=== PATIENT | male | born 1970 | race Caucasian/White ===

== ENCOUNTER 2020-06-23 08:52 | Outpatient (REF) | payer OTHER, SELFPAY | END 2020-06-23 08:53 | disposition home or self-care (01) | LOC: HO.LAB 08:52 | PROVIDERS: Visit Provider Internal Medicine | DX: Z20.828 Contact with and (suspected) exposure to other viral communicable diseases (principal) | CPT/HCPCS: C9803; U0003 ==

== ENCOUNTER 2020-07-20 12:39 | Outpatient (REF) | payer OTHER, SELFPAY ==
--- NOTE | 2020-07-20 12:45 | XR_ITS ---
EXAMINATION: XR CHEST CLINICAL INFORMATION: Cough COMPARISON: None TECHNIQUE: 2 views of the chest were obtained. FINDINGS: The lungs are clear. There is no airspace consolidation or groundglass opacity. The costophrenic sulci are well-defined. There is no effusion. The heart is normal in size. The hilar and mediastinal contours are normal. No visible acute bony abnormality. XR/XR chest 2V IMPRESSION: Unremarkable examination.
== END 2020-07-20 12:40 | disposition home or self-care (01) ==
LOC: HO.HMGCX 12:39
PROVIDERS: PCP Internal Medicine; Visit Provider Nurse Practitioner Family
DX: R05 Cough (principal)
CPT/HCPCS: 71046

== ENCOUNTER 2020-07-26 17:41 | Inpatient (IN) | payer OTHER, SELFPAY ==
--- NOTE | 2020-07-26 17:47 | CT_ITS ---
EXAMINATION: CT CHEST WITHOUT CONTRAST CLINICAL INFORMATION: Hypoxia. Covid positive. COMPARISON: Chest x-ray 07/20/2020 TECHNIQUE: Multidetector volumetric CT imaging of the chest was done. Axial MIP volume rendering provided. Sagittal and coronal reformatted images were obtained. This CT examination was performed using dose optimization techniques as appropriate, variously including the following: *Automated exposure control *Adjustment of mA and/or kV according to patient size (this includes techniques or standardized protocols for targeted exams where dose is matched to indication/reason for exam; i.e. extremities or head) *Use of iterative reconstruction technique DLP: 403 mGy-cm FINDINGS: LUNGS: There are extensive bilateral airspace multifocal airspace opacities in the lungs bilateral consistent with Covid positive pneumonia. These are new since the chest x-ray 07/20/2020. MEDIASTINUM: Without IV contrast mixed assessment of the hilum limited. There is borderline enlarged lymph nodes in the pretracheal retrovascular space that are likely reactive. PLEURA: There is no pleural effusion. No pleural mass or thickening. AXILLA: No lymphadenopathy. UPPER ABDOMEN: Diffuse low attenuation of liver parenchyma due to fatty change. The adrenal glands are normal. OSSEOUS STRUCTURES: No acute osseous abnormality. Mild degenerative spondylosis of the dorsal spine. CT/CT chest wo con IMPRESSION: Extensive bilateral airspace opacities consistent with positive pneumonia.
--- NOTE | 2020-07-26 17:48 | ECG_ITS ---
Test Reason : SHORTNESS OF BREATH Blood Pressure : / mmHG Vent. Rate : 088 BPM Atrial Rate : 088 BPM P-R Int : 166 ms QRS Dur : 086 ms QT Int : 358 ms P-R-T Axes : 031 002 -02 degrees QTc Int : 433 ms Normal sinus rhythm Nonspecific T wave abnormality Borderline ECG No previous ECGs available Referred By: Adrienne Morelos Electronically Signed By:CARMEN HINES
[2020-07-26 17:56] VITALS: BP 121/77; PULSE 94; RESP 28; TEMP 38.4; O2SAT 78; BMI 29.8
--- NOTE | 2020-07-26 17:56 | ED_ITS ---
HPI - SOB/Dyspnea General Chief Complaint: Dyspnea Stated Complaint: COVID Time Seen by Provider: 07/26/20 17:47 Source: patient Mode of arrival: ambulatory Limitations: no limitations History of Present Illness HPI Narrative: dx with COVID last has had dyspnea since then, given azithromycin and zpak but didn't take it due to PCP telling him to stop, his breathing has worsened over the past couple of days and he was hallucinating, sat at home checked 84%, told to come to ED MD elicited complaint: shortness of breath Pertinent past history: other (+COVID) Onset (ago): week(s) (1) Context: recent illness and occurred during exertion Timing: constant Severity: severe Exacerbating factors: exertion Relieving factors: oxygen Known history of: other (+ COVID) Associated symptoms: cough and other (hallucinating) Treatment prior to arrival: none Related Data Previous Rx's Medication Instructions Recorded albuterol sulfate 90 mcg/actuation 2 puff INHALATION Q4-6H PRN #6.7 g 07/20/20 aerosol inhaler prednisone 20 mg tablet 20 mg PO DAILY 9 Days #18 tab MDD 07/20/20 3 for 3days;2 for 3 days;1 3da Allergies Allergy/AdvReac Type Severity Reaction Status Date / Time Penicillins AdvReac Unknown Unknown Verified 07/26/20 17:49 Review of Systems Review of Systems: Constitutional : No Fever, pos Chills ENT/Mouth : No sore throat, No Rhinorrhea, No Swallowing Difficulty Eyes: No Eye Pain, No Swelling, No Redness Cardiovascular : No Chest Pain, positive SOB, No Orthopnea, no Edema Respiratory : pos Cough, No Sputum, No Wheezing, positive dyspnea Gastrointestinal : No Nausea, No Vomiting, No Diarrhea, No abdominal Pain, No Hematochezia, No Melena Genitourinary : No Dysuria, No Urinary Frequency, No Hematuria Musculoskeletal : No joint pain, No Myalgias Skin : No Skin Lesions, No rash Neuro : No Weakness, No Numbness, No Dizziness, No Headache Psych : No Anxiety/Panic, No Depression Heme/Lymph: No Bruising, No Lymphadenopathy Endocrine : No Polyuria, No Polydipsia All other systems reviewed and are negative [facility] Past Medical History Attestation statement: The following information was validated with the patient. Medical History Sleep apnea Social History Social History (Updated 07/26/20 @ 18:00 by Adrienne Morelos DO) Smoking Status: Never smoker Use of substances other than those prescribed or required for medical reasons: No Advance Directives: No Advance Directives Information Provided: Yes Physical Exam Vital Signs: Vital Signs: Last Vital Signs Temp 101.2 F H 07/26/20 17:56 Pulse 87 07/26/20 18:47 Resp 29 H 07/26/20 18:47 BP 122/77 07/26/20 18:47 Pulse Ox 96 07/26/20 18:47 Body Mass Index 29.8 Appearance: Alert. Oriented X3. Anxious, mild acute distress. Eyes: Pupils equal, round and reactive to light. ENT: Pharynx normal. Neck: Normal inspection. Neck supple. CVS: Normal heart rate and rhythm. Pulses normal. Respiratory: mild respiratory distress tachypnea and short sentences. Breath sounds with rhonchi and diminished throughout. Abdomen: Soft and non-tender. Skin: Skin warm and dry. Normal skin color. Normal skin turgor. Extremities: No lower extremity edema. No calf ttp Neuro: Oriented X 3. No motor deficit. No sensory deficit. Course Course Course Narrative: doing well on NRB at this time MDM - SOB/Dyspnea MDM Narrative Medical decision making narrative: 50 yo male with sleep apnea not a smoker dx with COVID almost a week ago his breathing has been getting worse and when he started hallucinating found to be hypoxic, on arrival to the ED he was 78% started on NRB and sat 96% with improvement in RR - will need labs, EKG, CT chest, IV dexamethasone, empiric ceftriaxone and azithromycin, planned admit Lab Data Result diagrams: 07/26/20 17:56 07/26/20 17:55 Labs: Lab Results 07/26/20 07/26/20 07/26/20 Range/Units 17:54 17:55 17:55 WBC (4.8-10.8) X10*3/uL RBC (4.60-5.80) X10*6/uL Hgb (14.0-18.0) g/dl Hct (42-52) % MCV (80-98) fL MCH (27.0-33.0) pg MCHC (31.0-36.0) g/dl RDW (11.0-16.0) % Plt Count (160-400) X10*3/uL MPV (9.4-12.4) fL Immature Gran % (Auto) (0.0-0.4) % Neut % (Auto) (45-73) % Lymph % (Auto) (20-40) % [place] % (Auto) (2-11) % Eos % (Auto) (0-4) % Baso % (Auto) (0-2) % Lymph # (Auto) (1.2-4.9) X10*3/uL [place] # (Auto) (0.1-1.2) X10*3/uL Eos # (Auto) (0.0-0.4) X10*3/uL Baso # (Auto) (0.0-0.2) X10*3/uL Abs Immat Gran (auto) (0.00-0.03) X10*3/uL Absolute Neuts (auto) (2.0-8.3) X10*3/uL Absolute Nucleated RBC (0.0-0.012) X10*3/uL Nucleated RBC % (auto) (0.0-0.2) /100WBC PT (10.8-13.0) SEC INR (0.9-1.1) APTT (24.1-38.0) SEC VBG pH (7.32-7.43) VBG pCO2 mmhg VBG pO2 mmhg VBG HCO3 mmol/L VBG O2 Saturation % VBG Base Excess mmol/L Sodium 136 (135-145) mmol/L Potassium 4.3 (3.3-5.1) mmol/l Chloride 95 L (96-108) mmol/L Carbon Dioxide 28 (22-29) mmol/L Anion Gap 17 (12-20) BUN 17 H (9-16) mg/dL Creatinine 1.14 (0.5-1.4) mg/dL Estim Creat Clear Calc 95.8 Estimated GFR > 60 Random Glucose 121 H (60-115) mg/dL Lactic Acid 1.6 (0.5-2.0) mmol/L Calcium 9.1 (8.4-10.2) mg/dL Magnesium (1.6-2.6) mg/dL Total Bilirubin (0.0-1.0) mg/dL Direct Bilirubin (0.0-0.5) mg/dL AST (5-37) U/L ALT (0-40) U/L Alkaline Phosphatase (39-117) U/L Lactate Dehydrogenase (118-273) U/L Total Creatine Kinase 311 H (38-174) U/L B-Natriuretic Peptide Cancelled Total Protein (6.5-8.0) g/dL Albumin (3.5-5.0) g/dL 07/26/20 07/26/20 07/26/20 Range/Units 17:55 17:55 17:56 WBC 7.8 (4.8-10.8) X10*3/uL RBC 5.89 H (4.60-5.80) X10*6/uL Hgb 17.7 (14.0-18.0) g/dl Hct 52.2 H (42-52) % MCV 88.6 (80-98) fL MCH 30.1 (27.0-33.0) pg MCHC 33.9 (31.0-36.0) g/dl RDW 11.3 (11.0-16.0) % Plt Count 291 (160-400) X10*3/uL MPV 8.5 L (9.4-12.4) fL Immature Gran % (Auto) 0.6 H (0.0-0.4) % Neut % (Auto) 81.9 H (45-73) % Lymph % (Auto) 13.3 L (20-40) % [place] % (Auto) 3.8 (2-11) % Eos % (Auto) 0.1 (0-4) % Baso % (Auto) 0.3 (0-2) % Lymph # (Auto) 1.0 L (1.2-4.9) X10*3/uL [place] # (Auto) 0.3 (0.1-1.2) X10*3/uL Eos # (Auto) 0.0 (0.0-0.4) X10*3/uL Baso # (Auto) 0.0 (0.0-0.2) X10*3/uL Abs Immat Gran (auto) 0.05 H (0.00-0.03) X10*3/uL Absolute Neuts (auto) 6.4 (2.0-8.3) X10*3/uL Absolute Nucleated RBC 0.000 (0.0-0.012) X10*3/uL Nucleated RBC % (auto) 0.0 (0.0-0.2) /100WBC PT 13.8 H (10.8-13.0) SEC INR 1.2 H (0.9-1.1) APTT 28.5 (24.1-38.0) SEC VBG pH (7.32-7.43) VBG pCO2 mmhg VBG pO2 mmhg VBG HCO3 mmol/L VBG O2 Saturation % VBG Base Excess mmol/L Sodium (135-145) mmol/L Potassium (3.3-5.1) mmol/l Chloride (96-108) mmol/L Carbon Dioxide (22-29) mmol/L Anion Gap (12-20) BUN (9-16) mg/dL Creatinine (0.5-1.4) mg/dL Estim Creat Clear Calc Estimated GFR Random Glucose (60-115) mg/dL Lactic Acid (0.5-2.0) mmol/L Calcium (8.4-10.2) mg/dL Magnesium 2.4 (1.6-2.6) mg/dL Total Bilirubin 1.3 H (0.0-1.0) mg/dL Direct Bilirubin 0.5 (0.0-0.5) mg/dL AST 47 H (5-37) U/L ALT 45 H (0-40) U/L Alkaline Phosphatase 54 (39-117) U/L Lactate Dehydrogenase 465 H (118-273) U/L Total Creatine Kinase (38-174) U/L B-Natriuretic Peptide Total Protein 8.1 H (6.5-8.0) g/dL Albumin 4.5 (3.5-5.0) g/dL 30/20 Range/Units 18:11 WBC (4.8-10.8) X10*3/uL RBC (4.60-5.80) X10*6/uL Hgb (14.0-18.0) g/dl Hct (42-52) % MCV (80-98) fL MCH (27.0-33.0) pg MCHC (31.0-36.0) g/dl RDW (11.0-16.0) % Plt Count (160-400) X10*3/uL MPV (9.4-12.4) fL Immature Gran % (Auto) (0.0-0.4) % Neut % (Auto) (45-73) % Lymph % (Auto) (20-40) % [place] % (Auto) (2-11) % Eos % (Auto) (0-4) % Baso % (Auto) (0-2) % Lymph # (Auto) (1.2-4.9) X10*3/uL [place] # (Auto) (0.1-1.2) X10*3/uL Eos # (Auto) (0.0-0.4) X10*3/uL Baso # (Auto) (0.0-0.2) X10*3/uL Abs Immat Gran (auto) (0.00-0.03) X10*3/uL Absolute Neuts (auto) (2.0-8.3) X10*3/uL Absolute Nucleated RBC (0.0-0.012) X10*3/uL Nucleated RBC % (auto) (0.0-0.2) /100WBC PT (10.8-13.0) SEC INR (0.9-1.1) APTT (24.1-38.0) SEC VBG pH 7.48 H (7.32-7.43) VBG pCO2 31 mmhg VBG pO2 147 mmhg VBG HCO3 22 mmol/L VBG O2 Saturation 99.0 % VBG Base Excess 0.1 mmol/L Sodium (135-145) mmol/L Potassium (3.3-5.1) mmol/l Chloride (96-108) mmol/L Carbon Dioxide (22-29) mmol/L Anion Gap (12-20) BUN (9-16) mg/dL Creatinine (0.5-1.4) mg/dL Estim Creat Clear Calc Estimated GFR Random Glucose (60-115) mg/dL Lactic Acid (0.5-2.0) mmol/L Calcium (8.4-10.2) mg/dL Magnesium (1.6-2.6) mg/dL Total Bilirubin (0.0-1.0) mg/dL Direct Bilirubin (0.0-0.5) mg/dL AST (5-37) U/L ALT (0-40) U/L Alkaline Phosphatase (39-117) U/L Lactate Dehydrogenase (118-273) U/L Total Creatine Kinase (38-174) U/L B-Natriuretic Peptide Total Protein (6.5-8.0) g/dL Albumin (3.5-5.0) g/dL ECG Data Attestation: I personally reviewed and interpreted this ECG as follows: ECG interpretation date: 07/26/20 ECG interpretation time: 18:44 Interpretation: Rate: 88 Rhythm: NSR [place]: normal Normal P waves. Normal AMANUEL. Normal QRS complex. ST T wave : tall waves V2, no ALANIS, nonspecific inverted V6 qTC: normal prior studies: no acute ischemia, none available The study has been interpreted contemporaneously by me. . Critical Care Time Critical Care Time Critical Care Time: Yes Total Critical Care Time: 60 Attestation: NRB, oxygen, repeat assessments. I attest to this time spent taking care of the patient Discharge Plan Discharge Clinical Impression: COVID-19, Pneumonia due to 2019-nCoV, Hypoxia Prescriptions: No Action albuterol sulfate 90 mcg/actuation HFA aerosol inhaler 2 puff inhalation Q4-6H PRN (Reason: shortness of breath or wheezing) Qty: 6.7 RF: 0 prednisone 20 mg tablet 20 mg PO DAILY MDD 3 for 3days;2 for 3 days;1 3da 9 Days Qty: 18 RF: 0
[2020-07-26 18:12] LABS: Basophils Percent Auto 0.3 % (0-2); Eosinophils Percent Auto 0.1 % (0-4); Hematocrit 52.2 % (42-52); Hemoglobin 17.7 g/dl (14.0-18.0); Imm Gran Abs Auto 0.05 X10*3/uL (0.00-0.03); Imm Gran Pct Auto 0.6 % (0.0-0.4); Lymphocytes Percent Auto 13.3 % (20-40); MANUAL DIFF FLAG NO; Mean Corpuscular HGB Conc 33.9 g/dl (31.0-36.0); Mean Corpuscular Hemoglobin 30.1 pg (27.0-33.0); Mean Corpuscular Volume 88.6 fL (80-98); Mean Platelet Volume 8.5 fL (9.4-12.4); Monocytes Absolute Auto 0.3 X10*3/uL (0.1-1.2); Monocytes Percent Auto 3.8 % (2-11); Neutrophils Absolute Auto 6.4 X10*3/uL (2.0-8.3); Neutrophils Percent Auto 81.9 % (45-73); Platelet Count 291 X10*3/uL (160-400); Red Blood Count 5.89 X10*6/uL (4.60-5.80); Red Cell Distribution Width 11.3 % (11.0-16.0); White Blood Count 7.8 X10*3/uL (4.8-10.8)
[2020-07-26 18:14] LABS: INTERNATIONAL NORM RATIO 1.2 (0.9-1.1); Prothrombin Time 13.8 SEC (10.8-13.0)
[2020-07-26 18:17] LABS: Partial Thromboplastin Time 28.5 SEC (24.1-38.0)
[2020-07-26 18:22] LABS: Base Excess VBG 0.1 mmol/L; HCO3 VBG 22 mmol/L; PCO2 VBG 31 mmhg; PO2 VBG 147 mmhg; pH VBG 7.48 (7.32-7.43)
[2020-07-26 18:30] LABS: Lactic Acid 1.6 mmol/L (0.5-2.0)
[2020-07-26 18:35] LABS: Alanine Aminotransferase 45 U/L (0-40); Albumin Level 4.5 g/dL (3.5-5.0); Alkaline Phosphatase 54 U/L (39-117); Anion Gap 17 (12-20); Aspartate Amino Transferase 47 U/L (5-37); Bilirubin Direct 0.5 mg/dL (0.0-0.5); Bilirubin Total 1.3 mg/dL (0.0-1.0); Blood Urea Nitrogen 17 mg/dL (9-16); Calcium 9.1 mg/dL (8.4-10.2); Carbon Dioxide 28 mmol/L (22-29); Chloride 95 mmol/L (96-108); Creatinine Clr Calc Pharmacy 95.8; Estimated Glomerular Filt Rate > 60; Glucose Random 121 mg/dL (60-115); Lactate Dehydrogenase 465 U/L (118-273); Magnesium 2.4 mg/dL (1.6-2.6); Potassium 4.3 mmol/l (3.3-5.1); Sodium 136 mmol/L (135-145); Total Protein 8.1 g/dL (6.5-8.0)
[2020-07-26 18:47] VITALS: BP 122/77; PULSE 87; RESP 29; O2SAT 96
[2020-07-26] MEDS: cefTRIAXone sodium 1 GM in 0.9 % Sodium Chloride 50 ML IV (18:47)
[2020-07-26] MEDS: Acetaminophen 325 MG TABLET 650 MG PO (18:48)
[2020-07-26] MEDS: dexAMETHasone sod phosphate 4 MG/ML VIAL IVPUSH (18:48)
[2020-07-26 18:53] LABS: B Type Natriuretic Peptide < 10 pg/mL (<100); Troponin-I High Sensitivity 4.4 ng/L (<3.5-35.0)
[2020-07-26 18:59] LABS: D Dimer 505 NG/ML
[2020-07-26 19:06] LABS: Procalcitonin 0.15 ng/mL
[2020-07-26] MEDS: Azithromycin 500 MG in 0.9 % Sodium Chloride 250 ML 125 MG IV (19:28)
[2020-07-26 19:29] VITALS: BP 122/78; PULSE 83; RESP 22; RESP 28; O2SAT 97
[2020-07-26 19:50] LABS: Ferritin 3867 ng/mL (20-250)
--- NOTE | 2020-07-26 19:51 | PC.NURSE ---
PT NOT ON BIPAP, SPO2 97% ON NON REBREATHER.
--- NOTE | 2020-07-26 20:26 | P.HPHOSP_ITS ---
History of Present Illness Date of Service: 07/26/20 Chief Complaint: Shortness of breath This is a 50-year-old male who presents the emergency department with shortness of breath. Two weeks ago his was diagnosed with COVID-19. Last week he began having dry cough and he also tested positive for COVID-19. Over the past several days he has had progressively worsening shortness of breath. He has been using an oximeter at home and today his oxygen saturations were in the 80s. His oxygen saturation was as low as 78% on room air on arrival to the emergency department. He was also noted to be febrile with a temperature of 101.2 degrees. He required non-rebreather to maintain oxygen saturations in the 90s. Chest CT showed bilateral pneumonia. He was started on IV antibiotics and the decision was made to admit him for further management. Review of Systems Review of Systems: Yes all other systems are reviewed and are negative Constitutional: Constitutional: Reports fever(s) Cardiovascular: Cardiovascular: Denies chest pain and Reports dyspnea Respiratory: Respiratory: Reports cough and Reports dyspnea Gastrointestinal: Gastrointestinal: Denies abdominal pain [facility] Medical History (Updated 07/26/20 @ 20:31 by JEREMIAH Pink) HLD (hyperlipidemia) Sleep apnea Functional capacity: independent ambulation Family history: reviewed and not pertinent Surgical History History of appendectomy Previous back surgery Social History Smoking Status: Never smoker Use of substances other than those prescribed or required for medical reasons: Yes Substance Use Type: Marijuana Substance Use Frequency: Occasionally Advance Directives: No Advance Directives Information Provided: Yes Meds Allergies Allergy/AdvReac Type Severity Reaction Status Date / Time Penicillins AdvReac Unknown Unknown Verified 07/26/20 17:49 Physical Exam Vital Signs and Narrative: Vital Signs: Last Vital Signs Temp 101.2 F H 07/26/20 17:56 Pulse 83 07/26/20 19:29 Resp 28 H 07/26/20 19:29 BP 122/78 07/26/20 19:29 Pulse Ox 97 07/26/20 19:29 Body Mass Index 29.8 Const: General: alert and awake Nutritional Appearance: well nourished Orientation/consciousness: patient oriented x3 HENMT: Head: Yes normocephalic and Yes atraumatic Eyes: Sclerae: sclerae normal Chest: Chest palpation & inspection: normal inspection of the chest Resp: Effort & Inspection: able to speak in complete sentences and tachypneic Cardio: Rate: regular rate Rhythm: regular rhythm GI: Palpation (GI): Soft to palpation and nontender Skin: General skin exam: no rashes or lesions noted Neuro: General: patient oriented x3 Cranial nerves: Yes CN's II-XII intact bilaterally and Yes Bilaterally intact EOM present Extrem: General: Yes normal to inspection Results Labs CBC and Chem 7: 07/26/20 17:56 07/26/20 17:55 Labs: Laboratory Results - last 24 hr 07/26/20 07/26/20 07/26/20 17:53 17:54 17:55 MCV MCH MCHC RDW Plt Count MPV Immature Gran % (Auto) Neut % (Auto) Lymph % (Auto) [place] % (Auto) Eos % (Auto) Baso % (Auto) Lymph # (Auto) [place] # (Auto) Eos # (Auto) Baso # (Auto) Abs Immat Gran (auto) Absolute Neuts (auto) Absolute Nucleated RBC Nucleated RBC % (auto) PT INR APTT D-Dimer VBG pH VBG pCO2 VBG pO2 VBG HCO3 VBG O2 Saturation VBG Base Excess Anion Gap 17 Estim Creat Clear Calc 95.8 Estimated GFR > 60 Random Glucose 121 H Lactic Acid 1.6 Calcium 9.1 Magnesium Ferritin Total Bilirubin Direct Bilirubin AST ALT Alkaline Phosphatase Lactate Dehydrogenase Total Creatine Kinase 311 H Troponin I High Sens 4.4 B-Natriuretic Peptide < 10 Total Protein Albumin Procalcitonin 07/26/20 07/26/20 07/26/20 17:55 17:55 17:55 MCV MCH MCHC RDW Plt Count MPV Immature Gran % (Auto) Neut % (Auto) Lymph % (Auto) [place] % (Auto) Eos % (Auto) Baso % (Auto) Lymph # (Auto) [place] # (Auto) Eos # (Auto) Baso # (Auto) Abs Immat Gran (auto) Absolute Neuts (auto) Absolute Nucleated RBC Nucleated RBC % (auto) PT 13.8 H INR 1.2 H APTT 28.5 D-Dimer 505 VBG pH VBG pCO2 VBG pO2 VBG HCO3 VBG O2 Saturation VBG Base Excess Anion Gap Estim Creat Clear Calc Estimated GFR Random Glucose Lactic Acid Calcium Magnesium 2.4 Ferritin 3867 H Total Bilirubin 1.3 H Direct Bilirubin 0.5 AST 47 H ALT 45 H Alkaline Phosphatase 54 Lactate Dehydrogenase 465 H Total Creatine Kinase Troponin I High Sens B-Natriuretic Peptide Cancelled Total Protein 8.1 H Albumin 4.5 Procalcitonin 07/26/20 07/26/20 07/26/20 17:56 18:09 18:11 MCV 88.6 MCH 30.1 MCHC 33.9 RDW 11.3 Plt Count 291 MPV 8.5 L Immature Gran % (Auto) 0.6 H Neut % (Auto) 81.9 H Lymph % (Auto) 13.3 L [place] % (Auto) 3.8 Eos % (Auto) 0.1 Baso % (Auto) 0.3 Lymph # (Auto) 1.0 L [place] # (Auto) 0.3 Eos # (Auto) 0.0 Baso # (Auto) 0.0 Abs Immat Gran (auto) 0.05 H Absolute Neuts (auto) 6.4 Absolute Nucleated RBC 0.000 Nucleated RBC % (auto) 0.0 PT INR APTT D-Dimer VBG pH 7.48 H VBG pCO2 31 VBG pO2 147 VBG HCO3 22 VBG O2 Saturation 99.0 VBG Base Excess 0.1 Anion Gap Estim Creat Clear Calc Estimated GFR Random Glucose Lactic Acid Calcium Magnesium Ferritin Total Bilirubin Direct Bilirubin AST ALT Alkaline Phosphatase Lactate Dehydrogenase Total Creatine Kinase Troponin I High Sens B-Natriuretic Peptide Total Protein Albumin Procalcitonin 0.15 Imaging Radiologist's Impressions: Impressions Chest CT 07/26/20 17:47 IMPRESSION: Extensive bilateral airspace opacities consistent with positive pneumonia. Assessment and Plan (1) COVID-19: Status: Acute (2) Hypoxia: Status: Acute This is a 50-year-old male with history of dyslipidemia, SAMANTHA, recently diagnosed with COVID-19 who presents to the emergency department with shortness of breath. Acute respiratory failure with hypoxia COVID-19 pneumonia Viral sepsis -supplemental oxygen as needed -IV dexamethasone -ID consult -check RPP, strep pneumo, legionella. SAMANTHA unable to tolerate CPAP since becoming SOB last week DVT prophylaxis-Lovenox Code status-full code This case was discussed with Dr. Maki
[2020-07-26 20:41] LABS: C Reactive Protein 17.42 mg/dL (< or = 0.50)
[2020-07-26] MEDS: Enoxaparin Sodium 40 MG/0.4 ML SYRINGE SUBCUT (21:00)
[2020-07-26 21:14] VITALS: BP 120/75; PULSE 67; RESP 26; TEMP 37.3; O2SAT 97
--- NOTE | 2020-07-26 21:57 | P.EN_ITS ---
Event Note Date of Service: 07/26/20 Event Note: Patient seen and examined independently. I agree with CHRISTINE note as sessment and plan. This is a 50-year-old male who presents to the hospital with increased cough and shortness of breath. Patient was tested positive for COVID- 19 on the 20 of July, from his was positive a week prior. He reports his worsening shortness of breath. He has an oximetry at home he checked his O2 and found to be in the 80s. On arrival to the ED was found to have an oxygen of 70. Otherwise hemodynamically stable. Patient will be admitted will start him on dexamethasone, and consult Infectious Disease. For full note please see H&P
[2020-07-27] VITALS (8 sets, daily range): BP systolic 110–142; BP diastolic 72–93; PULSE 60–82; RESP 18–28; TEMP 32.2–37.2; O2SAT 92–98
--- NOTE | 2020-07-27 | NM_ITS ---
EXAMINATION: NM LUNG IMAGE PERFUSION CLINICAL INFORMATION: Positive d-dimer. Sleep apnea with Covid Positive COMPARISON: Chest x-ray 07/20/[address] chest 07/26/2020. TECHNIQUE: Following intravenous administration of 4 mCi of 99m Tc MAA, imaging of both lungs were obtained in multiple projections. FINDINGS: On perfusion scan there is normal flow seen through all segments of the lungs without any focal segmental or subsegmental defect. Ventilation study was not performed. NM/AL pul perfusion IMPRESSION: Normal lung perfusion scan
[2020-07-27 00:12] LABS: Influenza A PCR NEGATIVE (Negative); Influenza B PCR NEGATIVE (Negative); Resp Syncy Virus RNA Qual PCR NEGATIVE (Negative)
[2020-07-27 00:21] LABS: SARS COV2 PCR INHOUSE POSITIVE (Negative)
--- NOTE | 2020-07-27 01:58 | PC.NURSE ---
Addendum entered by Aby Chau 07/27/20 02:59: tHIS SOLDERER DIPPER DID NOT COLLECT THE RESPIRATORY PANEL BUT THE RESPIRATORY PANEL WAS COLLECTED AND SENT TO THE LABORATORY. i DID NOT COLLECT THE PANEL THEREFORE i WILL NOT SIGN OFF THAT i COLLECTED THE SAMPLE. Original Note: The sars/covid swabbed collected. All other swabs and urine are not collected.
[2020-07-27] MEDS: 0.9 % Sodium Chloride Flush 3 ML SYRINGE IVFLUSH ×4 (04:04→23:51)
[2020-07-27 07:03] LABS: Anion Gap 15 (12-20); Blood Urea Nitrogen 22 mg/dL (9-16); Carbon Dioxide 27 mmol/L (22-29); Chloride 98 mmol/L (96-108); Estimated Glomerular Filt Rate > 60; Glucose Random 153 mg/dL (60-115); Potassium 4.6 mmol/l (3.3-5.1); Sodium 135 mmol/L (135-145)
[2020-07-27 07:08] LABS: Basophils Percent Auto 0.1 % (0-2); Hematocrit 43.7 % (42-52); Hemoglobin 14.6 g/dl (14.0-18.0); Imm Gran Abs Auto 0.07 X10*3/uL (0.00-0.03); Lymphocytes Absolute Auto 0.9 X10*3/uL (1.2-4.9); Lymphocytes Percent Auto 13.3 % (20-40); MANUAL DIFF FLAG SCAN; Mean Corpuscular HGB Conc 33.4 g/dl (31.0-36.0); Mean Corpuscular Hemoglobin 29.7 pg (27.0-33.0); Mean Platelet Volume 8.9 fL (9.4-12.4); Monocytes Absolute Auto 0.4 X10*3/uL (0.1-1.2); Monocytes Percent Auto 5.2 % (2-11); Neutrophils Absolute Auto 5.5 X10*3/uL (2.0-8.3); Neutrophils Percent Auto 80.4 % (45-73); Platelet Count 263 X10*3/uL (160-400); Red Blood Count 4.91 X10*6/uL (4.60-5.80); Red Cell Distribution Width 11.2 % (11.0-16.0); SCAN SMEAR FLAG 1; White Blood Count 6.9 X10*3/uL (4.8-10.8)
[2020-07-27 07:32] LABS: SLIDE REVIEW VERIFIED
[2020-07-27] MEDS: dexAMETHasone sod phosphate 4 MG/ML VIAL 6 MG IVPUSH ×2 (09:20→17:02)
[2020-07-27] MEDS: Enoxaparin Sodium 60 MG/0.6 ML SYRINGE 50 MG SUBCUT ×2 (10:24→23:50)
--- NOTE | 2020-07-27 11:42 | HO.PM.IMPN ---
Subjective Subjective Date of Service: 07/28/20 Interval History: Patient being followed for hypoxic respiratory failure, and COVID-19 infection, this a.m. patient complaining of shortness of breath, cough with clear phlegm, remain hypoxic requiring 100% of non-rebreather mask. Review of Systems General generalized pain and weakness. CVS no chest pain, no palpitation. Respiratory cough productive of clear phlegm. Gastrointestinal no nausea, no vomiting, no abdominal pain Physical Exam Vital Signs: Vital Signs: Last Vital Signs Temp 97.7 F 07/27/20 08:00 Pulse 68 07/27/20 08:00 Resp 20 07/27/20 08:00 BP 110/77 07/27/20 08:00 Pulse Ox 92 07/27/20 08:00 Body Mass Index 29.8 General mild respiratory distress. Neck is supple no JVD. CVS regular rate rhythm, Respiratory coarse breath sound coughs with deep breathing, mild respiratory distress. Gastrointestinal abdomen soft, nontender, bowel sounds audible. Extremities no clubbing cyanosis or edema. Neuro nonfocal . Skin no rash Objective Data Current Medications Generic Name Dose Route Start Last Admin Trade Name Freq PRN Reason Stop Dose Admin Acetaminophen 650 mg 07/26/20 20:24 Acetaminophen 325 Mg Tablet PO Q6H PRN Pain, Mild (Pain Scale 1-3) Albuterol Sulfate 2 puff 07/26/20 20:24 Albuterol Sulfate 90 Mcg 8 Gm Inhaler INHALE Q4H PRN shortness of breath or wheezin Dexamethasone Sodium Phosphate 6 mg 07/27/20 17:30 Dexamethasone Sod Phosphate 4 Mg/Ml Vial IVPUSH BIDPC MICKEY Docusate Sodium 100 mg 07/26/20 20:24 Docusate Sodium 100 Mg Capsule PO DAILY PRN Constipation Enoxaparin Sodium 50 mg 07/27/20 11:00 07/27/20 10:24 Enoxaparin Sodium 60 Mg/0.6 Ml Syringe SUBCUT 50 mg Q12H MICKEY Administration Guaifenesin/Dextromethorphan 10 ml 07/27/20 10:07 Guaifenesin Dm 200/20/10 Ml 10 Ml Syrup PO Q6H PRN cough Ondansetron HCl 4 mg 07/26/20 20:24 Ondansetron Hcl 4 Mg/2 Ml Vial IVPUSH Q8H PRN Nausea and Vomiting Pharmacy Consult 1 each 07/26/20 17:47 Consult Rx Perform Med Rec MISCELLANE ONCE PRN Consult order Sodium Chloride 3 ml 07/27/20 00:00 07/27/20 09:20 0.9 % Sodium Chloride Flush 3 Ml Syringe IVFLUSH 3 ml QSHIFT MICKEY Administration Labs CBC & Chem 7: 07/27/20 05:27 07/27/20 05:27 Assessment and Plan (1) Acute respiratory failure with hypoxia: Problem details: COVID Over 10 days Remdesivir not useful in this stage,past viremia level He has likely inflammatory post COVID lung changes,no PE seen Status: Acute (2) COVID-19: Status: Acute (3) Pneumonia due to 2019-nCoV: Status: Acute Assessment and Plan: 50-year-old male with history of dyslipidemia, SAMANTHA, recently diagnosed with COVID-19 who presents to the emergency department with shortness of breath. Acute respiratory failure with hypoxia due to COVID-19 pneumonia/Viral sepsis Symptoms started > 10 days ago, patient complaining of shortness of breath and generalized fatigue. Will continue non-rebreather mask 100%, continue IV dexamethasone change to b.i.d. day 2, change Lovenox to 0.5 milligram/kg b.i.d., add cough medication , add vit c/zinc and incentive spirometry CT chest with extensive bilateral airspace opacities , procalcitonin 0.15, LDH 465. Case discussed with Dr. Novoa. Will discuss with ID regarding use of remdesivir and IV antibiotic. Continue close monitoring in C SAMANTHA unable to tolerate CPAP since becoming SOB last week DVT prophylaxis-Lovenox Code status-full code
--- NOTE | 2020-07-27 11:44 | CONS_ITS ---
DATE OF SERVICE: 07/27/2020 INDICATION: Worsening shortness of breath. HISTORY OF PRESENT ILLNESS: Mr. Winchester is a 50-year-old gentleman with history of sleep apnea and hyperlipidemia, who apparently was in usual state of health until about a week ago when he started developing viral-like symptoms with dry cough. He tested positive for COVID-19. Subsequently after that, he has had worsening respiratory symptoms. He has been using the oximeter at home and was found to be hypoxic down to the 80s. Therefore, he was brought to the [facility] ED for further evaluation. There, he was found to be febrile up to 101.2, hypoxia down to 78% on room air. He was placed on non-rebreather and admitted to the COVID unit. The patient was started on IV antibiotics. A CT scan demonstrated bilateral airspace disease. REVIEW OF SYSTEMS: Complains of the constitutional symptoms as stated above. Complains of the respiratory symptoms as stated above. Denies any cardiac symptoms. Denies any GI/ symptoms. Denies any musculoskeletal symptoms or rashes. The rest of the 10-organ systems is negative. PAST MEDICAL HISTORY: Sleep apnea and hypertension. SOCIAL HISTORY: Never smoker. FAMILY HISTORY: Hypertension. PHYSICAL EXAMINATION: VITAL SIGNS: Stable, although he is saturating 92% on 15 L non-rebreather, breathing 20 times a minute. GENERAL: Pleasant gentleman, in no acute distress at this time. Speaking in full sentences. HEENT: Pupils are equal and reactive to light. Oropharynx is clear. NECK: Supple. LUNGS: Diminished. Some crackles appreciated. CARDIAC: Regular rhythm, regular rate. ABDOMEN: Positive bowel sounds. Soft. EXTREMITIES: No clubbing, cyanosis, or edema. LABORATORY DATA: His white count is 6.9, hemoglobin stable, platelet count stable. Lymphocytes are decreased. His D-dimer is 505. Chemistries; BUN 22, calcium 8. COVID test, positive. IMAGING STUDIES: She did undergo a CT of the chest. That was without contrast demonstrating extensive bilateral airspace disease, although he should undergo on a CTA because of his elevated D-dimer. ASSESSMENT: Mr. Winchester is a 50-year-old gentleman presenting 1 week worth's of worsening respiratory symptoms after COVID. IMPRESSION: 1. Acute hypoxic respiratory failure secondary to significant lower respiratory extensive airspace disease, although thromboembolic disease cannot be ruled out with an elevated D-dimer. Currently on high dose prophylactic Lovenox, although still not therapeutic. 2. COVID-19 infection 1 week from the initiation of symptoms. RECOMMENDATIONS: 1. We will check a perfusion study to rule out thromboembolic disease. In the meantime, continue with high dose prophylactic Lovenox. 2. Start Remdesivir. 3. Continue with dexamethasone, although due to the extensive disease, will be reasonable to increase it to twice a day. 4. Awake proning. The patient is aware he is going to try to do it. 5. For any worsening, he will go on high flow. 6. Further recommendation will be based on forthcoming data. Evens Novoa MD MR/AYDE / [id number]
--- NOTE | 2020-07-27 13:08 | MHC.CM.PN ---
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 Patient does not have a HCP and declines filling one out today after education provided. Discussed discharge plan, home no services. [facility] [phone] will provide transport upon discharge. CM will continue to follow patient for discharge needs.
--- NOTE | 2020-07-27 21:11 | W.PM.IDCN ---
History of Present Illness Data of Consult Service Date: 07/27/20 Requesting physician: Marissa Peterson Primary Care Provider: Unknown Physician HPI Reason for consult: COVID He presents to hospital with shortness of breath and hypoxia to 80 He has had fever and chills. He has had symptoms over 10 days His was diagnosed with COVID 14 days ago. Apparently he is recovering Review of Systems Review of Systems: Yes all other systems are reviewed and are negative PMFSH Past Medical History Medical History HLD (hyperlipidemia) Sleep apnea Functional capacity: independent ambulation Family History Family history: reviewed and not pertinent Surgical History Surgical History History of appendectomy Previous back surgery Social History Social History Household Members: Spouse Housing: House Do you presently have visiting nurse or other home services: No Smoking Status: Never smoker Use of substances other than those prescribed or required for medical reasons: Yes Substance Use Type: Marijuana Substance Use Frequency: Socially Currently Displaying Signs/Symptoms of Drug Intoxication Withdrawal: No Any prior treatment program specific to substance use: No Have you been hit, kicked, punched, or otherwise hurt by someone within the past year? If so, by whom?: No Do you feel safe in your current relationship?: Yes Is there a partner from a previous relationship who is making you feel unsafe now?: No Are you made to feel afraid or neglected: No Advance Directives: No Advance Directives Information Provided: Yes Do you have thoughts of harming others: None Do you have a plan to hurt others: No Plan Recently lost weight without trying: No service: Yes Current occupational status: employed Meds Allergies Allergy/AdvReac Type Severity Reaction Status Date / Time Penicillins AdvReac Unknown Unknown Verified 07/26/20 17:49 Physical Exam Vital Signs: Vital Signs: Last Vital Signs Temp 97.6 F 07/27/20 20:31 Pulse 68 07/27/20 20:31 Resp 18 07/27/20 20:31 BP 142/85 H 07/27/20 20:31 Pulse Ox 93 07/27/20 20:31 Body Mass Index 29.8 Const: General: cooperative HENMT: Head: Yes normal to inspection Eyes: General: appearance normal, both eyes and all related structures Resp: Effort & Inspection: abnormal respiratory pattern Cardio: Rate: regular rate and tachycardic GI: Palpation (GI): Soft to palpation and nontender : General: Yes no CVA tenderness Back/Spine/Pelvis: Back: no CVA tenderness Skin: Rashes: no rashes Extrem: Right upper extremity: normal to inspection Assessment and Plan (1) Acute respiratory failure with hypoxia: Problem details: COVID Over 10 days Remdesivir not useful in this stage,past viremia level He has likely inflammatory post COVID lung changes,no PE seen Status: Acute Would continue Dexamethaone Oxygen supportive care (2) COVID-19: Status: Acute Results Labs CBC & Chem 7: 07/27/20 05:27 07/27/20 05:27 Labs: Short CBC 07/27/20 Range/Units 05:27 WBC 6.9 (4.8-10.8) X10*3/uL Hgb 14.6 (14.0-18.0) g/dl Hct 43.7 (42-52) % Plt Count 263 (160-400) X10*3/uL BMP 07/27/20 05:27 Sodium 135 Potassium 4.6 Chloride 98 Carbon Dioxide 27 BUN 22 H Creatinine 0.86 Calcium 8.0 L D Microbiology Microbiology Results: Microbiology 07/26/20 18:08 Blood - Venous Blood Culture - Preliminary No growth after 24 hours. 07/26/20 18:02 Blood - Venous Blood Culture - Preliminary No growth after 24 hours.
[2020-07-28 04:00] VITALS: BP 137/86; PULSE 60; RESP 22; TEMP 35.7; O2SAT 94
[2020-07-28 07:11] VITALS: BP 130/70; PULSE 64; RESP 18; TEMP 36.1; O2SAT 95
[2020-07-28] MEDS: 0.9 % Sodium Chloride Flush 3 ML SYRINGE IVFLUSH ×3 (07:35→23:43)
[2020-07-28] MEDS: dexAMETHasone sod phosphate 4 MG/ML VIAL 6 MG IVPUSH ×2 (07:36→16:33)
--- NOTE | 2020-07-28 09:34 | HO.PM.IMPN ---
Subjective Subjective Date of Service: 07/28/20 Interval History: Patient being followed for COVID-19 infection and hypoxic respiratory failure, patient complaining of shortness of breath and fatigue with minimal exertion, tried getting out of bed to chair took him a long time, developed shakiness and chills, feels cold, patient denies chest pain oxygenation remains stable overnight. Review of Systems General generalized weakness, shortness of breath with exertion. CVS no chest pain, no palpitation. Respiratory cough productive of clear phlegm. Gastrointestinal no nausea, no vomiting, no abdominal pain Physical Exam Vital Signs: Vital Signs: Last Vital Signs Temp 96.9 F 07/28/20 07:11 Pulse 64 07/28/20 07:11 Resp 18 07/28/20 07:11 BP 130/70 07/28/20 07:11 Pulse Ox 95 07/28/20 07:11 Body Mass Index 29.8 General mild respiratory distress. Neck is supple no JVD. CVS regular rate rhythm, Respiratory diminished, coarse breath sound, coughs with deep breathing, mild respiratory distress. Gastrointestinal abdomen soft, nontender, bowel sounds audible. Extremities no clubbing cyanosis or edema. Neuro nonfocal . Skin no rash Objective Data Current Medications Generic Name Dose Route Start Last Admin Trade Name Freq PRN Reason Stop Dose Admin Acetaminophen 650 mg 07/26/20 20:24 Acetaminophen 325 Mg Tablet PO Q6H PRN Pain, Mild (Pain Scale 1-3) Albuterol Sulfate 2 puff 07/26/20 20:24 Albuterol Sulfate 90 Mcg 8 Gm Inhaler INHALE Q4H PRN shortness of breath or wheezin Dexamethasone Sodium Phosphate 6 mg 07/27/20 17:30 07/28/20 07:36 Dexamethasone Sod Phosphate 4 Mg/Ml Vial IVPUSH 6 mg BIDPC MICKEY Administration Docusate Sodium 100 mg 07/26/20 20:24 Docusate Sodium 100 Mg Capsule PO DAILY PRN Constipation Enoxaparin Sodium 50 mg 07/27/20 11:00 07/27/20 23:50 Enoxaparin Sodium 60 Mg/0.6 Ml Syringe SUBCUT 50 mg Q12H MICKEY Administration Guaifenesin/Dextromethorphan 10 ml 07/27/20 10:07 Guaifenesin Dm 200/20/10 Ml 10 Ml Syrup PO Q6H PRN cough Ondansetron HCl 4 mg 07/26/20 20:24 Ondansetron Hcl 4 Mg/2 Ml Vial IVPUSH Q8H PRN Nausea and Vomiting Pharmacy Consult 1 each 07/26/20 17:47 Consult Rx Perform Med Rec MISCELLANE ONCE PRN Consult order Sodium Chloride 3 ml 07/27/20 00:00 07/28/20 07:35 0.9 % Sodium Chloride Flush 3 Ml Syringe IVFLUSH 3 ml QSHIFT MICKEY Administration Labs CBC & Chem 7: 07/27/20 05:27 07/27/20 05:27 Microbiology Microbiology Results: Microbiology 07/26/20 18:08 Blood - Venous Blood Culture - Preliminary No growth after 24 hours. 07/26/20 18:02 Blood - Venous Blood Culture - Preliminary No growth after 24 hours. Assessment and Plan (1) Acute respiratory failure with hypoxia: Problem details: COVID Over 10 days Remdesivir not useful in this stage,past viremia level He has likely inflammatory post COVID lung changes,no PE seen Status: Acute (2) COVID-19: Status: Acute (3) Pneumonia due to 2019-nCoV: Status: Acute (4) Hypoxia: Status: Acute (5) Cough: Status: Acute Assessment and Plan: 50-year-old male with history of dyslipidemia, SAMANTHA, recently diagnosed with COVID-19 who presents to the emergency department with shortness of breath. Acute respiratory failure with hypoxia due to COVID-19 pneumonia/Viral sepsis Persistent shortness of breath and weakness Will continue non-rebreather mask 100%, oxygenation remains stable, continue IV dexamethasone b.i.d. day 3, Lovenox to 0.5 milligram/kg b.i.d., continue cough medication , vit c/zinc and incentive spirometry CT chest with extensive bilateral airspace opacities , procalcitonin 0.15, LDH 465. Patient is not a candidate for remdesivir since symptoms started greater than 10 days ago, continue to follow clinical course closely if hypoxemia worsens patient will be placed on high-flow oxygen SAMANTHA CPAP DVT prophylaxis-Lovenox Code status-full code
[2020-07-28] MEDS: Zinc Sulfate 220 MG CAPSULE PO (11:01)
[2020-07-28] MEDS: Ascorbic Acid 500 MG TABLET PO (11:02)
[2020-07-28] MEDS: Enoxaparin Sodium 60 MG/0.6 ML SYRINGE 50 MG SUBCUT ×2 (11:02→23:42)
[2020-07-28 11:04] VITALS: BP 127/61; PULSE 77; RESP 17; TEMP 36.1; O2SAT 93
--- NOTE | 2020-07-28 13:28 | PM.PNPUL ---
Subjective Subjective Date of Service: 07/28/20 Interval history: Seen and examined. On Oximezer pendednt. Still with dyspnea and hypoxia with minimal activity. Will check SARs Cov2 Ab today. If not present should get Covolesent plasma Objective Data Labs CBC & Chem 7: 07/27/20 05:27 07/27/20 05:27 Microbiology Microbiology Results: Microbiology 07/26/20 18:08 Blood - Venous Blood Culture - Preliminary No growth after 24 hours. 07/26/20 18:02 Blood - Venous Blood Culture - Preliminary No growth after 24 hours. Review of Systems Review of Systems Yes all other systems are reviewed and are negative Constitutional: Reports fever(s) Cardiovascular: Denies chest pain and Reports dyspnea Respiratory: Reports cough and Reports dyspnea Gastrointestinal: Denies abdominal pain Physical Exam Vital Signs: Vital Signs: Last Vital Signs Temp 97 F 07/28/20 11:04 Pulse 77 07/28/20 11:04 Resp 17 07/28/20 11:04 BP 127/61 07/28/20 11:04 Pulse Ox 93 07/28/20 11:04 Body Mass Index 29.8 Const: General: alert HENMT: General nose exam: Abnormal external nose present and Nasal discharge present Eyes: Pupils: Equal, round and reactive pupils present Neck: Neck: Yes normal visual inspection, Yes full ROM and Yes no lymphadenopathy Chest: Chest palpation & inspection: normal inspection of the chest Resp: Auscultation: diminished lung sounds Cardio: Rate: regular rate Rhythm: regular rhythm Heart sounds: S1 normal heart sound present and S2 normal heart sound present GI: Palpation (GI): Soft to palpation and nontender Auscultation: normal bowel sounds : General: Yes no CVA tenderness Back/Spine/Pelvis: Back: no CVA tenderness Skin: General skin exam: rashes and/or lesions noted Neuro: Cranial nerves: Yes Equal, round and reactive pupils present Assessment and Plan Assessment and plan (1) Acute respiratory failure with hypoxia: Problem details: COVID Over 10 days Remdesivir not useful in this stage,past viremia level He has likely inflammatory post COVID lung changes,no PE seen Status: Acute Assessment and Plan: Awake pronig Oximizer pendednt/ NRB if worsens will need HF (2) COVID-19: Status: Acute Assessment and Plan: Check Igg ADELE CoV2, if negative please give Conalesent plasma Continue high dose steroids and lovenox No Remdisivir due to his prolonged duration of his illness (3) Pneumonia due to 2019-nCoV: Status: Acute Time Spent With Patient Time: Total time spent is greater than 50% in coordination of care (as documented) at patient's floor/unit and/or counseling patient: Time with patient: 15 - 24 minutes
[2020-07-28 15:30] LABS: SARS COV2 IgG Positive (Negative)
[2020-07-28 16:00] VITALS: BP 139/79; PULSE 64; RESP 18; TEMP 37; O2SAT 97
[2020-07-28 19:13] VITALS: BP 140/85; PULSE 60; RESP 18; TEMP 36.9; O2SAT 97
[2020-07-29] VITALS: BP 125/83; PULSE 74; RESP 20; TEMP 37.1; O2SAT 95
[2020-07-29 01:12] LABS: Glucose, Whole Blood 258 mg/dL (60-115)
[2020-07-29 06:42] VITALS: BP 152/94; PULSE 58; RESP 18; TEMP 37; O2SAT 94
[2020-07-29] MEDS: dexAMETHasone sod phosphate 4 MG/ML VIAL 6 MG IVPUSH ×2 (09:22→16:04)
[2020-07-29] MEDS: 0.9 % Sodium Chloride Flush 3 ML SYRINGE IVFLUSH ×2 (09:23→16:04)
[2020-07-29] MEDS: Ascorbic Acid 500 MG TABLET PO (09:23)
[2020-07-29] MEDS: Zinc Sulfate 220 MG CAPSULE PO (09:23)
[2020-07-29] MEDS: Enoxaparin Sodium 60 MG/0.6 ML SYRINGE 50 MG SUBCUT (11:36)
[2020-07-29 12:00] VITALS: BP 120/77; PULSE 84; RESP 20; TEMP 36.8; O2SAT 95
--- NOTE | 2020-07-29 13:09 | HO.PM.IMPN ---
Subjective Subjective Date of Service: 07/29/20 Interval History: Patient being followed for COVID-19 infection and hypoxic respiratory failure, patient complaining of shortness of breath and fatigue with minimal exertion, tried getting out of bed to chair took him a long time, developed shakiness and chills, feels cold, patient denies chest pain oxygenation remains stable overnight. Review of Systems General generalized weakness, shortness of breath with exertion. CVS no chest pain, no palpitation. Respiratory cough productive of clear phlegm. Gastrointestinal no nausea, no vomiting, no abdominal pain Physical Exam Vital Signs: Vital Signs: Last Vital Signs Temp 98.2 F 07/29/20 12:00 Pulse 84 07/29/20 12:00 Resp 20 07/29/20 12:00 BP 120/77 07/29/20 12:00 Pulse Ox 95 07/29/20 12:00 Body Mass Index 29.8 Const: Other: General no acute distress. Neck supple no JVD. CVS regular rate rhythm, Respiratory lungs clear to auscultation, diminished breath sounds, no respiratory distress. Gastrointestinal abdomen soft, nontender, bowel sounds audible. Extremities no clubbing, cyanosis or edema. Neuro nonfocal Skin no rash Objective Data Current Medications Generic Name Dose Route Start Last Admin Trade Name Freq PRN Reason Stop Dose Admin Acetaminophen 650 mg 07/26/20 20:24 Acetaminophen 325 Mg Tablet PO Q6H PRN Pain, Mild (Pain Scale 1-3) Albuterol Sulfate 2 puff 07/26/20 20:24 Albuterol Sulfate 90 Mcg 8 Gm Inhaler INHALE Q4H PRN shortness of breath or wheezin Ascorbic Acid 500 mg 07/28/20 09:45 07/29/20 09:23 Ascorbic Acid 500 Mg Tablet PO 500 mg DAILY MICKEY Administration Dexamethasone Sodium Phosphate 6 mg 07/27/20 17:30 07/29/20 09:22 Dexamethasone Sod Phosphate 4 Mg/Ml Vial IVPUSH 6 mg BIDPC MICKEY Administration Docusate Sodium 100 mg 07/26/20 20:24 Docusate Sodium 100 Mg Capsule PO DAILY PRN Constipation Enoxaparin Sodium 50 mg 07/27/20 11:00 07/29/20 11:36 Enoxaparin Sodium 60 Mg/0.6 Ml Syringe SUBCUT 50 mg Q12H MICKEY Administration Guaifenesin/Dextromethorphan 10 ml 07/27/20 10:07 Guaifenesin Dm 200/20/10 Ml 10 Ml Syrup PO Q6H PRN cough Ondansetron HCl 4 mg 07/26/20 20:24 Ondansetron Hcl 4 Mg/2 Ml Vial IVPUSH Q8H PRN Nausea and Vomiting Pharmacy Consult 1 each 07/26/20 17:47 Consult Rx Perform Med Rec MISCELLANE ONCE PRN Consult order Sodium Chloride 3 ml 07/27/20 00:00 07/29/20 09:23 0.9 % Sodium Chloride Flush 3 Ml Syringe IVFLUSH 3 ml QSHIFT MICKEY Administration Zinc Sulfate 220 mg 07/28/20 09:45 07/29/20 09:23 Zinc Sulfate 220 Mg Capsule PO 220 mg DAILY MICKEY Administration Labs CBC & Chem 7: 07/27/20 05:27 07/27/20 05:27 Microbiology Microbiology Results: Microbiology 07/26/20 18:08 Blood - Venous Blood Culture - Preliminary No growth after 48 hours. 07/26/20 18:02 Blood - Venous Blood Culture - Preliminary No growth after 48 hours. Assessment and Plan (1) Acute respiratory failure with hypoxia: Status: Acute (2) COVID-19: Status: Acute (3) Pneumonia due to 2019-nCoV: Status: Acute (4) Hypoxia: Status: Acute (5) Cough: Status: Acute Assessment and Plan: 50-year-old male with history of dyslipidemia, SAMANTHA, recently diagnosed with COVID-19 who presents to the emergency department with shortness of breath. Acute respiratory failure with hypoxia due to COVID-19 pneumonia/Viral sepsis Less shortness of breath and weakness Weaned down to oximizer 10 L with finger oximetry 95, continue IV dexamethasone b.i.d. day 4, Lovenox to 0.5 milligram/kg b.i.d., continue cough medication , vit c/zinc and encourage incentive spirometry CT chest with extensive bilateral airspace opacities , procalcitonin 0.15, LDH 465. Patient is not a candidate for remdesivir since symptoms started greater than 10 days ago, continue to follow clinical course closely, continue supportive care. SAMANTHA CPAP DVT prophylaxis-Lovenox Code status-full code
[2020-07-29 15:53] VITALS: BP 115/79; PULSE 65; RESP 18; TEMP 36.6; O2SAT 100
[2020-07-29 20:00] VITALS: BP 116/75; PULSE 68; RESP 18; TEMP 36.8; O2SAT 99
[2020-07-30] VITALS: BP 136/86; PULSE 62; RESP 18; TEMP 36.7; O2SAT 98
[2020-07-30] MEDS: Enoxaparin Sodium 60 MG/0.6 ML SYRINGE 50 MG SUBCUT ×3 (00:02→23:05)
[2020-07-30] MEDS: 0.9 % Sodium Chloride Flush 3 ML SYRINGE IVFLUSH ×4 (00:02→23:04)
[2020-07-30 03:32] VITALS: BP 129/81; PULSE 58; RESP 20; TEMP 36.7; O2SAT 95
[2020-07-30 08:00] VITALS: BP 116/64; PULSE 69; RESP 19; TEMP 36.6; O2SAT 96
[2020-07-30] MEDS: dexAMETHasone sod phosphate 4 MG/ML VIAL 6 MG IVPUSH ×2 (09:24→17:49)
[2020-07-30] MEDS: Ascorbic Acid 500 MG TABLET PO (09:24)
[2020-07-30] MEDS: Zinc Sulfate 220 MG CAPSULE PO (09:24)
[2020-07-30] MEDS: Acetaminophen 325 MG TABLET 650 MG PO (09:26)
[2020-07-30 11:59] VITALS: BP 124/90; PULSE 65; RESP 18; TEMP 36.8; O2SAT 99
--- NOTE | 2020-07-30 14:49 | HO.PM.IMPN ---
Subjective Subjective Date of Service: 07/30/20 Interval History: Patient being followed for COVID-19 infection and hypoxic respiratory failure, patient complaining of shortness of breath and fatigue with minimal exertion, tried getting out of bed to chair took him a long time, developed shakiness and chills, feels cold, patient denies chest pain oxygenation remains stable overnight. Review of Systems General generalized weakness, shortness of breath with exertion. CVS no chest pain, no palpitation. Respiratory cough improving Gastrointestinal no nausea, no vomiting, no abdominal pain Physical Exam Vital Signs: Vital Signs: Last Vital Signs Temp 98.2 F 07/30/20 11:59 Pulse 65 07/30/20 11:59 Resp 18 07/30/20 11:59 BP 124/90 H 07/30/20 11:59 Pulse Ox 99 07/30/20 11:59 Body Mass Index 29.8 Const: Other: General no acute distress. Neck supple no JVD. CVS regular rate rhythm, Respiratory lungs clear to auscultation, diminished breath sounds, no respiratory distress. Gastrointestinal abdomen soft, nontender, bowel sounds audible. Extremities no clubbing, cyanosis or edema. Neuro nonfocal Skin no rash Objective Data Current Medications Generic Name Dose Route Start Last Admin Trade Name Freq PRN Reason Stop Dose Admin Acetaminophen 650 mg 07/26/20 20:24 07/30/20 09:26 Acetaminophen 325 Mg Tablet PO 650 mg Q6H PRN Administration Pain, Mild (Pain Scale 1-3) Albuterol Sulfate 2 puff 07/26/20 20:24 Albuterol Sulfate 90 Mcg 8 Gm Inhaler INHALE Q4H PRN shortness of breath or wheezin Ascorbic Acid 500 mg 07/28/20 09:45 07/30/20 09:24 Ascorbic Acid 500 Mg Tablet PO 500 mg DAILY MICKEY Administration Dexamethasone Sodium Phosphate 6 mg 07/27/20 17:30 07/30/20 09:24 Dexamethasone Sod Phosphate 4 Mg/Ml Vial IVPUSH 6 mg BIDPC MICKEY Administration Docusate Sodium 100 mg 07/26/20 20:24 Docusate Sodium 100 Mg Capsule PO DAILY PRN Constipation Enoxaparin Sodium 50 mg 07/27/20 11:00 07/30/20 09:24 Enoxaparin Sodium 60 Mg/0.6 Ml Syringe SUBCUT 50 mg Q12H MICKEY Administration Guaifenesin/Dextromethorphan 10 ml 12/31/20 10:07 Guaifenesin Dm 200/20/10 Ml 10 Ml Syrup PO Q6H PRN cough Ondansetron HCl 4 mg 07/26/20 20:24 Ondansetron Hcl 4 Mg/2 Ml Vial IVPUSH Q8H PRN Nausea and Vomiting Pharmacy Consult 1 each 07/26/20 17:47 Consult Rx Perform Med Rec MISCELLANE ONCE PRN Consult order Sodium Chloride 3 ml 07/27/20 00:00 07/30/20 09:24 0.9 % Sodium Chloride Flush 3 Ml Syringe IVFLUSH 3 ml QSHIFT MICKEY Administration Zinc Sulfate 220 mg 07/28/20 09:45 07/30/20 09:24 Zinc Sulfate 220 Mg Capsule PO 220 mg DAILY MICKEY Administration Labs CBC & Chem 7: 07/27/20 05:27 07/27/20 05:27 Microbiology Microbiology Results: Microbiology 07/26/20 18:08 Blood - Venous Blood Culture - Preliminary No growth after 48 hours. 07/26/20 18:02 Blood - Venous Blood Culture - Preliminary No growth after 48 hours. Assessment and Plan (1) Acute respiratory failure with hypoxia: Status: Acute (2) COVID-19: Status: Acute (3) Pneumonia due to 2019-nCoV: Status: Acute (4) Hypoxia: Status: Acute (5) Cough: Status: Acute Assessment and Plan: 50-year-old male with history of dyslipidemia, SAMANTHA, recently diagnosed with COVID-19 who presents to the emergency department with shortness of breath. Acute respiratory failure with hypoxia due to COVID-19 pneumonia/Viral sepsis Less shortness of breath and weakness, oxygenation remains stable on oximizer 10 L with finger oximetry 95, continue IV dexamethasone b.i.d. day 5, Lovenox to 0.5 milligram/kg b.i.d., continue cough medication , vit c/zinc, encourage incentive spirometry CT chest with extensive bilateral airspace opacities , procalcitonin 0.15, LDH 465. Patient is not a candidate for remdesivir since symptoms started greater than 10 days ago, continue to follow clinical course closely, continue supportive care. Repeat labs at a.m. SAMANTHA CPAP DVT prophylaxis-Lovenox Code status-full code
[2020-07-30 15:49] VITALS: BP 135/79; PULSE 74; RESP 20; TEMP 36.3; O2SAT 98
[2020-07-30 20:00] VITALS: BP 139/86; PULSE 63; RESP 18; TEMP 36.4; O2SAT 98
[2020-07-30 20:28] LABS: Strep Pneumo Ag urine Not Detected (Not Detected)
[2020-07-31] VITALS (7 sets, daily range): BP systolic 115–152; BP diastolic 55–87; PULSE 58–111; RESP 18–20; TEMP 36.4–37.1; O2SAT 95–99
--- NOTE | 2020-07-31 08:00 | XR_ITS ---
EXAMINATION: XR CHEST CLINICAL INFORMATION: Hypoxia COMPARISON: Previous chest x-ray 07/20/[address] 07/26/2020 TECHNIQUE: Frontal view of the chest was obtained. FINDINGS: The cardiac and mediastinal contours are stable. There are bilateral infiltrates, left greater than right. These are new or increased from 07/20/2020 chest x-ray and do not appear significantly increased from 07/26/[address] scan and may be slightly decreased. There is no pleural effusion or pneumothorax. Bony structures are unremarkable. XR/XR chest 1V IMPRESSION: Bilateral infiltrates not appreciably changed from most recent chest CT scan 07/26/2020.
[2020-07-31 08:01] LABS: MANUAL DIFF FLAG NO
[2020-07-31 08:08] LABS: Basophils Percent Auto 0.1 % (0-2); Eosinophils Percent Auto 0.1 % (0-4); Hematocrit 43.9 % (42-52); Imm Gran Abs Auto 0.61 X10*3/uL (0.00-0.03); Imm Gran Pct Auto 4.5 % (0.0-0.4); Lymphocytes Absolute Auto 1.4 X10*3/uL (1.2-4.9); Lymphocytes Percent Auto 9.9 % (20-40); Mean Corpuscular HGB Conc 34.2 g/dl (31.0-36.0); Mean Corpuscular Hemoglobin 30.2 pg (27.0-33.0); Mean Corpuscular Volume 88.5 fL (80-98); Mean Platelet Volume 8.6 fL (9.4-12.4); Monocytes Absolute Auto 0.8 X10*3/uL (0.1-1.2); Neutrophils Absolute Auto 10.9 X10*3/uL (2.0-8.3); Neutrophils Percent Auto 79.4 % (45-73); Platelet Count 447 X10*3/uL (160-400); Red Blood Count 4.96 X10*6/uL (4.60-5.80); Red Cell Distribution Width 11.2 % (11.0-16.0); White Blood Count 13.7 X10*3/uL (4.8-10.8)
[2020-07-31 08:28] LABS: D Dimer 207 NG/ML
[2020-07-31 08:30] LABS: Alanine Aminotransferase 79 U/L (0-40); Albumin Level 3.7 g/dL (3.5-5.0); Alkaline Phosphatase 50 U/L (39-117); Anion Gap 12 (12-20); Aspartate Amino Transferase 26 U/L (5-37); Bilirubin Direct 0.3 mg/dL (0.0-0.5); Bilirubin Total 0.6 mg/dL (0.0-1.0); Blood Urea Nitrogen 17 mg/dL (9-16); C Reactive Protein 1.17 mg/dL (< or = 0.50); Calcium 8.3 mg/dL (8.4-10.2); Carbon Dioxide 27 mmol/L (22-29); Chloride 99 mmol/L (96-108); Creatinine Clr Calc Pharmacy 134.9; Estimated Glomerular Filt Rate > 60; Glucose Random 138 mg/dL (60-115); Potassium 5.2 mmol/l (3.3-5.1); Sodium 133 mmol/L (135-145); Total Protein 6.5 g/dL (6.5-8.0)
[2020-07-31] MEDS: dexAMETHasone sod phosphate 4 MG/ML VIAL 6 MG IVPUSH (09:08)
[2020-07-31] MEDS: 0.9 % Sodium Chloride Flush 3 ML SYRINGE IVFLUSH ×3 (09:08→21:48)
[2020-07-31] MEDS: Ascorbic Acid 500 MG TABLET PO (09:08)
[2020-07-31] MEDS: Enoxaparin Sodium 60 MG/0.6 ML SYRINGE 50 MG SUBCUT ×2 (11:16→21:47)
[2020-07-31] MEDS: Zinc Sulfate 220 MG CAPSULE PO (11:16)
--- NOTE | 2020-07-31 12:01 | MHC.CM.PN ---
DP Male 50 DX COVID+. DC to home no services and will provide transportation. LOS R/T continued need for supplemental Oxygen. Pt is sob 10L Spo2 mid 90s. CM will follow to address change in DC needs.
--- NOTE | 2020-07-31 13:36 | HO.PM.IMPN ---
Subjective Subjective Date of Service: 07/31/20 Interval History: Improved Cardiovascular Cardiovascular: Reports no additional cardiovascular complaints Gastrointestinal Gastrointestinal: Reports no additional gastrointestinal complaints Physical Exam Vital Signs: Vital Signs: Last Vital Signs Temp 97.6 F 07/31/20 11:59 Pulse 111 H 07/31/20 11:59 Resp 18 07/31/20 11:59 BP 115/55 L 07/31/20 11:59 Pulse Ox 95 07/31/20 11:59 Body Mass Index 29.8 General: AO X 3, no acute distress Resp: CTA bilateral CVS: S1,S2,RRR GI: soft, non tender, non distended Neuro: motor grossly intact Psych: appropriate affect Objective Data Current Medications Generic Name Dose Route Start Last Admin Trade Name Freq PRN Reason Stop Dose Admin Acetaminophen 650 mg 07/26/20 20:24 07/30/20 09:26 Acetaminophen 325 Mg Tablet PO 650 mg Q6H PRN Administration Pain, Mild (Pain Scale 1-3) Albuterol Sulfate 2 puff 07/26/20 20:24 Albuterol Sulfate 90 Mcg 8 Gm Inhaler INHALE Q4H PRN shortness of breath or wheezin Ascorbic Acid 500 mg 07/28/20 09:45 07/31/20 09:08 Ascorbic Acid 500 Mg Tablet PO 500 mg DAILY MICKEY Administration Dexamethasone Sodium Phosphate 6 mg 07/27/20 17:30 07/31/20 09:08 Dexamethasone Sod Phosphate 4 Mg/Ml Vial IVPUSH 6 mg BIDPC MICKEY Administration Docusate Sodium 100 mg 07/26/20 20:24 Docusate Sodium 100 Mg Capsule PO DAILY PRN Constipation Enoxaparin Sodium 50 mg 07/27/20 11:00 07/31/20 11:16 Enoxaparin Sodium 60 Mg/0.6 Ml Syringe SUBCUT 50 mg Q12H MICKEY Administration Guaifenesin/Dextromethorphan 10 ml 07/27/20 10:07 Guaifenesin Dm 200/20/10 Ml 10 Ml Syrup PO Q6H PRN cough Ondansetron HCl 4 mg 07/26/20 20:24 Ondansetron Hcl 4 Mg/2 Ml Vial IVPUSH Q8H PRN Nausea and Vomiting Pharmacy Consult 1 each 07/26/20 17:47 Consult Rx Perform Med Rec MISCELLANE ONCE PRN Consult order Sodium Chloride 3 ml 07/27/20 00:00 07/31/20 09:08 0.9 % Sodium Chloride Flush 3 Ml Syringe IVFLUSH 3 ml QSHIFT MICKEY Administration Zinc Sulfate 220 mg 07/28/20 09:45 07/31/20 11:16 Zinc Sulfate 220 Mg Capsule PO 220 mg DAILY MICKEY Administration Labs CBC & Chem 7: 07/31/20 07:46 07/31/20 07:46 Microbiology Microbiology Results: Microbiology 07/26/20 18:08 Blood - Venous Blood Culture - Preliminary No growth after 48 hours. 07/26/20 18:02 Blood - Venous Blood Culture - Preliminary No growth after 48 hours. Assessment and Plan (1) Acute respiratory failure with hypoxia: Status: Acute (2) COVID-19: Status: Acute (3) Pneumonia due to 2019-nCoV: Status: Acute (4) Hypoxia: Status: Acute (5) Cough: Status: Acute Assessment and Plan: 50-year-old male with history of dyslipidemia, SAMANTHA, recently diagnosed with COVID-19 who presents to the emergency department with shortness of breath. Acute respiratory failure with hypoxia due to COVID-19 pneumonia/Viral sepsis Continues to improve, continue Decadron day 8 of 10, wean O2 as tolerated SAMANTHA CPAP
[2020-08-01] VITALS (8 sets, daily range): BP systolic 110–156; BP diastolic 68–92; PULSE 52–91; RESP 18–20; TEMP 36.5–37.1; O2SAT 93–95
[2020-08-01] MEDS: dexAMETHasone sod phosphate 4 MG/ML VIAL 6 MG IVPUSH ×2 (08:36→17:19)
[2020-08-01] MEDS: 0.9 % Sodium Chloride Flush 3 ML SYRINGE IVFLUSH ×2 (08:36→17:18)
[2020-08-01] MEDS: Zinc Sulfate 220 MG CAPSULE PO (08:36)
[2020-08-01] MEDS: Ascorbic Acid 500 MG TABLET PO (08:36)
--- NOTE | 2020-08-01 09:39 | PC.NURSE ---
Pt weaned from 10L O2 via Oxymizer to 4L O2 via NC with good response. O2 sats 94-96%. Will continue to monitor and wean O2 as tolerated.
--- NOTE | 2020-08-01 11:19 | HO.PM.IMPN ---
Subjective Subjective Date of Service: 08/01/20 Interval History: improving slowly Cardiovascular Cardiovascular: Reports no additional cardiovascular complaints Gastrointestinal Gastrointestinal: Reports no additional gastrointestinal complaints Physical Exam Vital Signs: Vital Signs: Last Vital Signs Temp 97.9 F 08/01/20 07:44 Pulse 80 08/01/20 07:44 Resp 18 08/01/20 07:44 BP 110/68 08/01/20 07:44 Pulse Ox 95 08/01/20 07:44 Body Mass Index 29.8 General: AO X 3, no acute distress Resp: CTA bilateral CVS: S1,S2,RRR GI: soft, non tender, non distended Neuro: motor grossly intact Psych: appropriate affect Objective Data Current Medications Generic Name Dose Route Start Last Admin Trade Name Freq PRN Reason Stop Dose Admin Acetaminophen 650 mg 07/26/20 20:24 07/30/20 09:26 Acetaminophen 325 Mg Tablet PO 650 mg Q6H PRN Administration Pain, Mild (Pain Scale 1-3) Albuterol Sulfate 2 puff 07/26/20 20:24 Albuterol Sulfate 90 Mcg 8 Gm Inhaler INHALE Q4H PRN shortness of breath or wheezin Ascorbic Acid 500 mg 07/28/20 09:45 08/01/20 08:36 Ascorbic Acid 500 Mg Tablet PO 500 mg DAILY MICKEY Administration Dexamethasone Sodium Phosphate 6 mg 07/27/20 17:30 08/01/20 08:36 Dexamethasone Sod Phosphate 4 Mg/Ml Vial IVPUSH 6 mg BIDPC MICKEY Administration Docusate Sodium 100 mg 07/26/20 20:24 Docusate Sodium 100 Mg Capsule PO DAILY PRN Constipation Enoxaparin Sodium 50 mg 07/27/20 11:00 07/31/20 21:47 Enoxaparin Sodium 60 Mg/0.6 Ml Syringe SUBCUT 50 mg Q12H MICKEY Administration Guaifenesin/Dextromethorphan 10 ml 07/27/20 10:07 Guaifenesin Dm 200/20/10 Ml 10 Ml Syrup PO Q6H PRN cough Ondansetron HCl 4 mg 07/26/20 20:24 Ondansetron Hcl 4 Mg/2 Ml Vial IVPUSH Q8H PRN Nausea and Vomiting Pharmacy Consult 1 each 07/26/20 17:47 Consult Rx Perform Med Rec MISCELLANE ONCE PRN Consult order Sodium Chloride 3 ml 07/27/20 00:00 08/01/20 08:36 0.9 % Sodium Chloride Flush 3 Ml Syringe IVFLUSH 3 ml QSHIFT MICKEY Administration Zinc Sulfate 220 mg 07/28/20 09:45 08/01/20 08:36 Zinc Sulfate 220 Mg Capsule PO 220 mg DAILY MICKEY Administration Labs CBC & Chem 7: 07/31/20 07:46 07/31/20 07:46 Microbiology Microbiology Results: Microbiology 07/26/20 18:08 Blood - Venous Blood Culture - Final No growth after 5 days. 07/26/20 18:02 Blood - Venous Blood Culture - Final No growth after 5 days. Assessment and Plan (1) Acute respiratory failure with hypoxia: Status: Acute (2) COVID-19: Status: Acute (3) Pneumonia due to 2019-nCoV: Status: Acute (4) Hypoxia: Status: Acute (5) Cough: Status: Acute Assessment and Plan: 50-year-old male with history of dyslipidemia, SAMANTHA, recently diagnosed with COVID-19 who presents to the emergency department with shortness of breath. Acute respiratory failure with hypoxia due to COVID-19 pneumonia/Viral sepsis Continues to improve, continue Decadron day 6 of 10 (previous count of day 8 was in error), wean O2 as tolerated SAMANTHA CPAP
[2020-08-01] MEDS: Enoxaparin Sodium 60 MG/0.6 ML SYRINGE 50 MG SUBCUT ×2 (11:21→22:40)
--- NOTE | 2020-08-01 11:30 | PC.NURSE ---
This RN weaned pt from 4L O2 via NC to 2L O2 via NC with good response. Pt O2 sats 93-94% . Will continue to monitor and wean as tolerated.
--- NOTE | 2020-08-01 11:59 | PC.NURSE ---
Pt taken off 2L O2 via NC onto R/A with good response. O2 sats 90-92% . Will continue to monitor.
--- NOTE | 2020-08-01 12:27 | MHC.CM.PN ---
Male 50 Covid+ DP home no services with private transport. The Patient appears to be tolerating oxygen wean. A home O2 eval will determine the need for home O2. CM will follow.
[2020-08-02] MEDS: 0.9 % Sodium Chloride Flush 3 ML SYRINGE IVFLUSH ×2 (01:21→08:03)
[2020-08-02 04:00] VITALS: BP 140/76; PULSE 66; RESP 18; TEMP 36.9; O2SAT 96
--- NOTE | 2020-08-02 05:50 | PC.NURSE ---
PT ON RA ALL NIGHT 96% NOW OR MID 90S
[2020-08-02 08:00] VITALS: BP 138/80; PULSE 84; RESP 18; TEMP 36.6; O2SAT 95
[2020-08-02] MEDS: dexAMETHasone sod phosphate 4 MG/ML VIAL 6 MG IVPUSH (08:02)
[2020-08-02] MEDS: Ascorbic Acid 500 MG TABLET PO (08:03)
[2020-08-02] MEDS: Zinc Sulfate 220 MG CAPSULE PO (08:03)
--- NOTE | 2020-08-02 10:02 | PM.DS ---
DS: Providers Provider Date of Service: 08/02/20 Date of admission: 07/26/20 20:24 Primary care physician: Unknown Physician Consults: 07/26/20 20:24 Consult to Infectious Diseases Routine Consulting Provider: Cass Sosa Reason for consultation: COVID pneumonia Has provider been notified: No DS: Diagnosis Discharge Diagnosis (1) Acute respiratory failure with hypoxia: Status: Acute (2) COVID-19: Status: Acute (3) Pneumonia due to 2019-nCoV: Status: Acute (4) Hypoxia: Status: Acute (5) Cough: Status: Acute DS: Medications Discharge Medications Home Medications: Previous Rx's Medication Instructions Recorded albuterol sulfate 90 mcg/actuation 2 puff INHALATION Q4-6H PRN #6.7 g 07/20/20 aerosol inhaler dexamethasone [Decadron] 6 mg PO DAILY #3 tab 08/02/20 DS: Summary Hospital Course Hospital Course: Patient was admitted for acute hypoxic respiratory failure secondary to COVID pneumonia. He was given Decadron and O2 support. Symptoms improved. Patient was able to be weaned off oxygen. He is feeling much better and tolerating room air. He will be discharged home and complete 3 more days of p.o. Decadron. Time Spent with Patient Time attestation: Total time spent providing and/or coordinating discharge services: Physical Exam Vital Signs: Vital Signs: Last Vital Signs Temp 97.8 F 08/02/20 08:00 Pulse 84 08/02/20 08:00 Resp 18 08/02/20 08:00 BP 138/80 08/02/20 08:00 Pulse Ox 95 08/02/20 08:00 Body Mass Index 29.8 General: AO X 3, no acute distress Resp: CTA bilateral CVS: S1,S2,RRR GI: soft, non tender, non distended Neuro: motor grossly intact Psych: appropriate affect DS: Data Data Completed and Pending Labs on day of discharge: 07/26/20 17:47 CT chest wo con Stat 07/26/20 17:48 ECG 12 lead EKG Stat EKG Documentation DIRECTED 07/26/20 17:49 Azithromycin [Zithromax] 500 mg 0.9 % Sodium Chloride [Ns] 250 ml IV ONCE cefTRIAXone sodium [Rocephin] 1 gm 0.9 % Sodium Chloride [Ns] 50 ml IV ONCE dexAMETHasone sod phosphate [Decadron] 4 mg IVPUSH ONCE ONE 07/26/20 17:53 B Type Natriuretic Peptide Stat Troponin-I High Sensitivity Stat 07/26/20 17:54 Lactic Acid Stat 07/26/20 17:55 Basic Metabolic Panel Stat C Reactive Protein Stat Creatine Kinase Total Stat D Dimer Stat Ferritin Stat Lactate Dehydrogenase Stat Liver Panel Stat Magnesium Stat Partial Thromboplastin Time Stat Prothrombin Time INR Stat 07/26/20 17:56 Complete Blood Count Auto Diff Stat 07/26/20 18:08 Blood Culture X2 [BC] Stat 07/26/20 18:09 Procalcitonin Stat 07/26/20 18:11 Venous Blood Gas Stat 07/26/20 18:19 cefTRIAXone sodium [Rocephin] 1 gm .ROUTE .STK-MED ONE 07/26/20 18:20 Azithromycin [Zithromax] 500 mg IV .STK-MED ONE 07/26/20 18:34 Acetaminophen [Tylenol] 650 mg PO ONCE ONE 07/26/20 18:47 Add Laboratory Test Stat 07/26/20 20:20 Transfer Order Routine 07/26/20 20:24 IV insert/maintain Q4HR Intake and Output QSHIFTE Vital Signs Q4HR 07/26/20 20:25 Add Laboratory Test Stat 07/26/20 20:30 Enoxaparin Sodium [Lovenox] 40 mg SUBCUT Q24H 07/26/20 23:03 SARS-CoV2/FLU/RSV Stat 07/27/20 NM pul perfusion Routine 07/27/20 05:27 Basic Metabolic Panel DAILY@0600 Complete Blood Count Auto Diff DAILY@0600 SLIDE REVIEW Routine 07/27/20 09:00 dexAMETHasone sod phosphate [Decadron] 6 mg IVPUSH DAILY 07/28/20 14:29 SARS COV2 IgG Routine 07/29/20 01:06 Glucose, Whole Blood Routine 07/29/20 11:04 Incentive Spirometry DAILY 07/31/20 07:46 Basic Metabolic Panel Routine C Reactive Protein Routine Complete Blood Count Auto Diff Routine D Dimer Routine Liver Panel Routine 07/31/20 08:00 XR chest 1V Routine Laboratory Last Values WBC 13.7 X10*3/uL (4.8-10.8) H 07/31/20 07:46 RBC 4.96 X10*6/uL (4.60-5.80) 07/31/20 07:46 Hgb 15.0 g/dl (14.0-18.0) 07/31/20 07:46 Hct 43.9 % (42-52) 07/31/20 07:46 MCV 88.5 fL (80-98) 07/31/20 07:46 MCH 30.2 pg (27.0-33.0) 07/31/20 07:46 MCHC 34.2 g/dl (31.0-36.0) 07/31/20 07:46 RDW 11.2 % (11.0-16.0) 07/31/20 07:46 Plt Count 447 X10*3/uL (160-400) H D 07/31/20 07:46 MPV 8.6 fL (9.4-12.4) L 07/31/20 07:46 Immature Gran % (Auto) 4.5 % (0.0-0.4) H 07/31/20 07:46 Neut % (Auto) 79.4 % (45-73) H 07/31/20 07:46 Lymph % (Auto) 9.9 % (20-40) L 07/31/20 07:46 [place] % (Auto) 6.0 % (2-11) 07/31/20 07:46 Eos % (Auto) 0.1 % (0-4) 07/31/20 07:46 Baso % (Auto) 0.1 % (0-2) 07/31/20 07:46 Lymph # (Auto) 1.4 X10*3/uL (1.2-4.9) 07/31/20 07:46 [place] # (Auto) 0.8 X10*3/uL (0.1-1.2) 07/31/20 07:46 Eos # (Auto) 0.0 X10*3/uL (0.0-0.4) 07/31/20 07:46 Baso # (Auto) 0.0 X10*3/uL (0.0-0.2) 07/31/20 07:46 Abs Immat Gran (auto) 0.61 X10*3/uL (0.00-0.03) H 07/31/20 07:46 Absolute Neuts (auto) 10.9 X10*3/uL (2.0-8.3) H 07/31/20 07:46 Absolute Nucleated RBC 0.000 X10*3/uL (0.0-0.012) 07/31/20 07:46 Nucleated RBC % (auto) 0.0 /100WBC (0.0-0.2) 07/31/20 07:46 Smear Tech's Comments VERIFIED 07/27/20 05:27 PT 13.8 SEC (10.8-13.0) H 07/26/20 17:55 INR 1.2 (0.9-1.1) H 07/26/20 17:55 APTT 28.5 SEC (24.1-38.0) 07/26/20 17:55 D-Dimer 207 NG/ML 07/31/20 07:46 VBG pH 7.48 (7.32-7.43) H 07/26/20 18:11 VBG pCO2 31 mmhg 07/26/20 18:11 VBG pO2 147 mmhg 07/26/20 18:11 VBG HCO3 22 mmol/L 07/26/20 18:11 VBG O2 Saturation 99.0 % 07/26/20 18:11 VBG Base Excess 0.1 mmol/L 07/26/20 18:11 Sodium 133 mmol/L (135-145) L 07/31/20 07:46 Potassium 5.2 mmol/l (3.3-5.1) H 07/31/20 07:46 Chloride 99 mmol/L (96-108) 07/31/20 07:46 Carbon Dioxide 27 mmol/L (22-29) 07/31/20 07:46 Anion Gap 12 (12-20) 07/31/20 07:46 BUN 17 mg/dL (9-16) H 07/31/20 07:46 Creatinine 0.81 mg/dL (0.5-1.4) 07/31/20 07:46 Estim Creat Clear Calc 134.9 07/31/20 07:46 Estimated GFR > 60 07/31/20 07:46 POC Glucose 258 mg/dL (60-115) H 07/29/20 01:06 Random Glucose 138 mg/dL (60-115) H 07/31/20 07:46 Lactic Acid 1.6 mmol/L (0.5-2.0) 07/26/20 17:54 Calcium 8.3 mg/dL (8.4-10.2) L 07/31/20 07:46 Magnesium 2.4 mg/dL (1.6-2.6) 07/26/20 17:55 Ferritin 3867 ng/mL (20-250) H 07/26/20 17:55 Total Bilirubin 0.6 mg/dL (0.0-1.0) 07/31/20 07:46 Direct Bilirubin 0.3 mg/dL (0.0-0.5) 07/31/20 07:46 AST 26 U/L (5-37) D 07/31/20 07:46 ALT 79 U/L (0-40) H 07/31/20 07:46 Alkaline Phosphatase 50 U/L (39-117) 07/31/20 07:46 Lactate Dehydrogenase 465 U/L (118-273) H 07/26/20 17:55 Total Creatine Kinase 311 U/L (38-174) H 07/26/20 17:55 Troponin I High Sens 4.4 ng/L (<3.5-35.0) 07/26/20 17:53 C-Reactive Protein 1.17 mg/dL (< or = 0.50) H 07/31/20 07:46 B-Natriuretic Peptide Cancelled 07/26/20 17:55 Total Protein 6.5 g/dL (6.5-8.0) 07/31/20 07:46 Albumin 3.7 g/dL (3.5-5.0) 07/31/20 07:46 Procalcitonin 0.15 ng/mL 07/26/20 18:09 Coronavirus (PCR) POSITIVE (Negative) A 07/26/20 23:03 Influenza Type A (PCR) NEGATIVE (Negative) 07/26/20 23:03 Influenza Type B (PCR) NEGATIVE (Negative) 07/26/20 23:03 RSV RNA Qual (PCR) NEGATIVE (Negative) 07/26/20 23:03 SARS-CoV-2 IgG Ab Positive (Negative) 07/28/20 14:29 Ur Strep pneumoniae Ag Not Detected (Not Detected) 07/27/20 11:00 Discharge Plan Discharge Patient Disposition: Home, Self-Care Referrals: Physician,Unknown [Primary Care Provider] - Discharge Medications: New dexamethasone [Decadron] 6 mg tablet 6 mg PO DAILY Qty: 3 RF: 0 Continued albuterol sulfate 90 mcg/actuation HFA aerosol inhaler 2 puff inhalation Q4-6H PRN (Reason: shortness of breath or wheezing) Qty: 6.7 RF: 0 Discontinued prednisone 20 mg tablet 20 mg PO DAILY MDD 3 for 3days;2 for 3 days;1 3da 9 Days Qty: 18 RF: 0 Discharge Orders: Discharge Order (Routine); Ordered 08/02/20 Ordered By: Mike Wan Activity on Discharge: As tolerated Visit Report Forms: Patient Portal Discharge page Care Plan Goals: recovery Health Concerns: covid Plan of Treatment: 3 more days of decadron
--- NOTE | 2020-08-02 10:19 | MHC.CM.PN ---
Male 50 DX COVID+ Patient is discharged to home today. No home services required. Family is providing transportation.
[2020-08-02 10:22] LABS: Legionella Ag Urine Not Detected (Not Detected)
== END 2020-08-02 13:08 | disposition home or self-care (01) | DRG 720 ==
LOC: HO.ED 18:05 → HO.IMC 07-27 01:10
PROVIDERS: Hospitalist; Physician Assistant Medical; Admitting Provider Internal Medicine; Emergency Provider Emergency Medicine; PCP Internal Medicine; Visit Provider Internal Medicine
DX: A41.89 Other specified sepsis (principal); J96.01 Acute respiratory failure with hypoxia; U07.1 COVID-19; J12.89 Other viral pneumonia; G47.33 Obstructive sleep apnea (adult) (pediatric); E78.5 Hyperlipidemia, unspecified; Z88.0 Allergy status to penicillin; Z79.899 Other long term (current) drug therapy
CPT/HCPCS: 0241U; 36415; 71045; 71250; 78580; 80048; 80076; 82550; 82728; 82803; 82947; 83605; 83615; 83735; 83880; 84145; 84484; 85025; 85379; 85610; 85730; 86140; 86769; 87040; 87449; 87899; 93005; 96365; 96366; 96367; 96375; 99285; 99291; A9540; J0456; J0696; J1100; J1650

== ENCOUNTER 2024-12-19 18:23 | Emergency (ER) | payer OTHER, SELFPAY ==
--- NOTE | ~2024-12-19 | CT_ITS ---
CLINICAL HISTORY: R uper lower weakness 2 days +drift CT head without contrast Comparison: None Findings: Left cerebral convexity subdural mixed density collection likely representing acute on chronic subdural hematoma. This produces severe mass effect including 15 mm subfalcine herniation and moderate effacement of the left lateral ventricle as well as [id number] effacement of the 3rd ventricle. Asymmetric enlargement of the right lateral ventricle temporal horns suggesting an element of developing ventricular entrapment. No periventricular edema currently. Costa-white matter differentiation is maintained. Orbital structures normal. Paranasal sinuses and mastoid air cells clear. IMPRESSION: 1. Large mixed attenuation left cerebral convexity fluid collection most likely representing acute on chronic subdural hematoma producing severe mass effect. Neurosurgical consultation recommended. This document has been electronically signed by: Cayetano Herring MD on 12/19/2024 20:16:43
[2024-12-19 18:32] VITALS: BP 143/84; PULSE 79; RESP 18; TEMP 36.1; O2SAT 96; BMI 35.9
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
--- NOTE | 2024-12-19 18:41 | ECG_ITS ---
Test Reason : weakness Blood Pressure : */* mmHG Vent. Rate : 64 BPM Atrial Rate : 64 BPM P-R Int : 194 ms QRS Dur : 96 ms QT Int : 402 ms P-R-T Axes : 47 19 17 degrees QTcB Int : 414 ms Sinus rhythm with Premature atrial complexes Otherwise normal ECG When compared with ECG of 26-Jul-2020 18:34, Premature atrial complexes are now Present Nonspecific T wave abnormality no longer evident in Lateral leads Referred By: May Hoffmann Electronically Signed By: Santiago Scott
[2024-12-19 19:11] LABS: MANUAL DIFF FLAG NO
[2024-12-19 19:13] LABS: Basophils Absolute Auto 0.1 X10*3/uL (0.0-0.2); Basophils Percent Auto 0.8 % (0-2); Eosinophils Absolute Auto 0.3 X10*3/uL (0.0-0.4); Hematocrit 43.3 % (42.0-52.0); Hemoglobin 15.1 g/dl (14.0-18.0); Imm Gran Abs Auto 0.02 X10*3/uL (0.00-0.03); Imm Gran Pct Auto 0.3 % (0.0-0.4); Lymphocytes Percent Auto 30.5 % (20-40); Mean Corpuscular HGB Conc 34.9 g/dl (31.0-36.0); Mean Corpuscular Hemoglobin 30.1 pg (27.0-33.0); Mean Corpuscular Volume 86.4 fL (80.0-98.0); Monocytes Absolute Auto 0.4 X10*3/uL (0.1-1.2); Monocytes Percent Auto 5.7 % (2-11); Neutrophils Absolute Auto 3.8 x10*3/uL (2.0-8.3); Neutrophils Percent Auto 58.7 % (45-73); Platelet Count 187 X10*3/uL (160-400); Red Blood Count 5.01 X10*6/uL (4.60-5.80); Red Cell Distribution Width 11.6 % (11.0-16.0); White Blood Count 6.5 X10*3/uL (4.8-10.8)
[2024-12-19 19:18] LABS: Prothrombin Time 11.4 SEC (10.9-12.4)
[2024-12-19 19:21] LABS: Partial Thromboplastin Time 24.4 SEC (26.0-36.8)
[2024-12-19 19:27] LABS: Alanine Aminotransferase 51 U/L (0-40); Albumin Level 4.5 g/dL (3.5-5.0); Alkaline Phosphatase 62 U/L (39-117); Anion Gap 14 (12-20); Aspartate Amino Transferase 44 U/L (5-37); Bilirubin Total 0.4 mg/dL (0.0-1.0); Blood Urea Nitrogen 20 mg/dL (9-16); Calcium 9.4 mg/dL (8.4-10.2); Carbon Dioxide 24 mmol/L (22-29); Chloride 104 mmol/L (96-108); Cholesterol 211 mg/dL (<200); Creatinine Clr Calc Pharmacy 122.4; Estimated Glomerular Filt Rate > 60; Glucose Random 132 mg/dL (60-115); HDL Cholesterol 37 mg/dL (>40); LDL Cholesterol Calculated 110 mg/dL (<100); Magnesium 2.1 mg/dL (1.6-2.6); Potassium 3.7 mmol/L (3.3-5.1); Sodium 138 mmol/L (135-145); Total Protein 7.4 g/dL (6.5-8.0); Triglycerides 321 mg/dL (<150)
[2024-12-19 19:35] LABS: Troponin-I High Sensitivity < 2.7 ng/L (<3.5-35.0)
[2024-12-19 19:36] LABS: Glucose, Whole Blood 127 mg/dL (60-115)
[2024-12-19] MEDS: iohexoL 350 MG/ML 100 ML INFUS..BTL 75 ML IV (19:48)
[2024-12-19] MEDS: ondansetron HCL 4 MG/2 ML VIAL IVPUSH (20:12)
[2024-12-19 20:13] VITALS: BP 139/80; PULSE 65; RESP 12; O2SAT 93
[2024-12-19] MEDS: Morphine Sulfate 4 MG/ML CARTRIDGE IVPUSH (20:32)
[2024-12-19 20:49] VITALS: PULSE 68; RESP 20; TEMP 36.8; O2SAT 92
[2024-12-19 20:55] LABS: COVID-19 Test Negative (Negative); IDNOW Serial# 6674DD1D
--- NOTE | 2024-12-19 21:02 | PC.NURSE ---
pt vomited after zofran and morphine admin. provider aware. EMS here for transfer to [facility].
[2024-12-19 21:03] VITALS: BP 143/87; PULSE 66; O2SAT 92
--- NOTE | 2024-12-19 21:24 | PC.NURSE ---
Nurse to Nurse report given to URVASHI Wilson at [facility] phone number called [phone]
[2024-12-19 21:27] VITALS: BP 148/89; PULSE 63; RESP 16; TEMP 37.1; O2SAT 92
== END 2024-12-19 21:31 | disposition short-term general hospital (02) ==
PROVIDERS: Nurse Practitioner Family; Physician Assistant Medical; Emergency Provider Emergency Medicine
DX: I62.01 Nontraumatic acute subdural hemorrhage (principal); R29.705 NIHSS score 5; I10 Essential (primary) hypertension; R51.9 Headache, unspecified; E78.5 Hyperlipidemia, unspecified; Z87.820 Personal history of traumatic brain injury; Z79.899 Other long term (current) drug therapy
CPT/HCPCS: 36415; 70450; 80053; 80061; 82947; 83735; 84484; 85025; 85610; 85730; 87635; 93005; 96374; 96375; 99285; J2270; J2405; Q9967

== ENCOUNTER → 2024-12-19 18:41 | Outpatient (BNV) | payer OTHER, SELFPAY | PROVIDERS: Emergency Provider Emergency Medicine; Visit Provider Internal Medicine Cardiovascular Disease | DX: I49.1 Atrial premature depolarization (principal) | CPT/HCPCS: 93010 ==

== ENCOUNTER → 2024-12-19 18:44 | Outpatient (BNV) | payer OTHER, SELFPAY | PROVIDERS: Emergency Provider Emergency Medicine; Visit Provider Radiology Diagnostic Radiology | DX: R53.1 Weakness (principal) | CPT/HCPCS: 70450 ==